=== PATIENT | female | born 1965 | race Caucasian/White ===

== ENCOUNTER → 2016-07-27 | Outpatient (CLI) | payer OTHER ==
--- NOTE | 2016-07-28 15:15 | MRI ---
HISTORY: Primary osteoarthritis of right knee, right knee pain Study: MRI of the right knee without contrast Comparison: None Technique: Multiplanar multisequence MRI of the right knee was obtained utilizing standard [facility] protocol. Findings: MENISCI Medial meniscus: Intact. Lateral meniscus: Intact. LIGAMENTS Cruciate ligaments: Intact. Medial collateral ligament: Superficial and deep components intact. No periligamentous edema. Lateral collateral ligament: Intact. Posterolateral corner structures: Intact. EXTENSOR MECHANISM Extensor mechanism The distal quadriceps and patellar tendons are intact. The patella is normally po sitioned within the femoral groove. There is no retinacular disruption. SOFT TISSUES Small fluid collection is seen in the pes anserine bursa may indicate mild bursitis. No Muñoz's cyst . There is a small joint effusion present. OSSEOUS and ARTICULAR STRUCTURES Bones: No fracture, stress reaction, or osseous lesion is seen. Patellofemoral compartment: No hyaline cartilage disease. Medial compartment: No hyaline cartilage disease. Lateral compartment: There is fissuring of the medial cartilage in the lateral compartment and mild thinning of the femoral articular surface cartilage, overall grade 3 chondrosis. IMPRESSION: 1. No major ligamentous or meniscal injury identified. 2. Findings suggest mild pes anserine bursitis. 3. Lateral compartment chondrosis with fissuring of tibial cartilage. Reported By:
== END ==
LOC: RAD 08:58
PROVIDERS: ATTEND Specialist
DX: M17.11 Unilateral primary osteoarthritis, right knee (principal)
CPT/HCPCS: 73721